=== PATIENT | female | born 1985 | race Hispanic/Latino ===

== ENCOUNTER 2017-07-30 14:21 | Emergency (ER) | payer SELFPAY ==
[2017-07-30 16:09] LABS: BASOPHILS % (AUTO) 0.5 % (0.0-5.0); EOSINOPHILS % (AUTO) 1.6 % (0.0-8.0); HEMATOCRIT 38.9 % (36-48); MEAN CORPUSCULAR HEMOGLOBIN 33.1 pg (27.0-33.0); MEAN CORPUSCULAR HGB CONC 35.7 g/dL (32.0-36.0); MEAN CORPUSCULAR VOLUME 92.8 fL (79-99); NEUTROPHILS % (AUTO) 74.9 % (40.0-77.0); PLATELET COUNT (AUTO) 197 K/uL (130-400); RED BLOOD CELL COUNT(AUTO) 4.19 MIL/uL (4.00-5.50); RED CELL DISTRIBUTION WIDTH 12.8 % (11.0-15.5); WHITE BLOOD COUNT (AUTO) 6.8 K/uL (4.8-10.8)
[2017-07-30 16:20] LABS: CREATININE 0.8 mg/dL (0.5-1.5); POTASSIUM 3.8 mmol/L (3.5-5.1)
[2017-07-30 17:05] LABS: BILIRUBIN,URINE Small (NEGATIVE); COLOR,URINE Dark Yellow (YELLOW); GLUCOSE, URINE (UA) Negative (NEGATIVE); KETONES,URINE Trace mg/dL (NEGATIVE); LEUKOCYTE ESTERASE ,URINE Negative (NEGATIVE); NITRATE,URINE Negative (NEGATIVE); OCCULT BLOOD,URINE Negative (NEGATIVE); PROTEIN,URINE Negative (NEGATIVE)
[2017-07-30 17:12] LABS: APPEARANCE,URINE SLIGHTLY CLOUDY (CLEAR)
[2017-07-30 17:13] LABS: HCG,QUAL RESULT NEGATIVE (NEGATIVE)
[2017-07-30 17:22] LABS: BACTERIA,URINE Rare /HPF (None Seen); CALCIUM OXALATE CRYSTALS,UR Rare /LPF (None Seen); MUCUS,URINE Few LPF (None Seen); RBC,URINE 0-1 /HPF (0-1); SQUAMOUS EPITHELIAL CELL,UR Few /HPF (0-2); WBC,URINE 0-1 /HPF (0-1)
== END 2017-07-30 17:50 | disposition home or self-care (01) ==
LOC: EDH 14:21
DX: R10.84 Generalized abdominal pain (principal); R19.7 Diarrhea, unspecified
CPT/HCPCS: 36415; 80048; 81001; 81025; 85025

== ENCOUNTER 2018-03-27 13:46 | Inpatient (IN) | payer OTHER ==
[2018-03-26] MEDS: LACTATED RINGERS 1000ML 1,000 ML IV SCH (20:20)
[~2018-03-27] VITALS: Ht 154.9 cm; Wt 56.5 kg
[2018-03-27 14:14] LABS: APPEARANCE,URINE SL CLOUDY (CLEAR); BILIRUBIN,URINE NEGATIVE (NEGATIVE); COLOR,URINE YELLOW (YELLOW); GLUCOSE, URINE (UA) NEGATIVE (NEGATIVE); KETONES,URINE NEGATIVE (NEGATIVE); LEUKOCYTE ESTERASE ,URINE NEGATIVE (NEGATIVE); NITRATE,URINE NEGATIVE (NEGATIVE); OCCULT BLOOD,URINE NEGATIVE (NEGATIVE); PROTEIN,URINE TRACE (NEGATIVE); UROBILINOGEN,URINE 0.2 mg/dL (0.2-1.0)
[2018-03-27] MEDS ORDERED: ONDANSETRON HCL 4 MG/2 ML VIAL ONE (14:22)
[2018-03-27] MEDS ORDERED: SODIUM CHLORIDE 0.9% 1000ML 1,000 ML IV ONE (14:22)
[2018-03-27 14:23] LABS: HCG,QUAL RESULT NEGATIVE (NEGATIVE)
[2018-03-27 14:28] LABS: BASOPHILS % (AUTO) 0.3 % (0.0-5.0); HEMATOCRIT 43.9 % (36-48); LYMPHOCYTES % (AUTO) 5.8 % (21.0-51.0); MEAN CORPUSCULAR HEMOGLOBIN 32.6 pg (27.0-33.0); MEAN CORPUSCULAR HGB CONC 34.4 g/dL (32.0-36.0); MEAN CORPUSCULAR VOLUME 94.8 fL (79-99); MONOCYTES % (AUTO) 3.6 % (3.0-13.0); NEUTROPHILS % (AUTO) 90.3 % (40.0-77.0); PLATELET COUNT (AUTO) 248 K/uL (130-400); RED BLOOD CELL COUNT(AUTO) 4.63 MIL/uL (4.00-5.50); RED CELL DISTRIBUTION WIDTH 13.3 % (11.0-15.5); WHITE BLOOD COUNT (AUTO) 17.1 K/uL (4.8-10.8)
[2018-03-27 14:31] LABS: RBC,URINE 0-1 /HPF (0-1)
[2018-03-27 14:32] LABS: BACTERIA,URINE Few /HPF (None Seen)
[2018-03-27 14:33] LABS: MUCUS,URINE Few LPF (None Seen); SQUAMOUS EPITHELIAL CELL,UR Moderate /HPF (0-2)
[2018-03-27 14:39] LABS: CREATININE 0.9 mg/dL (0.5-1.5); POTASSIUM 3.9 mmol/L (3.5-5.1)
[2018-03-27 14:43] LABS: ALBUMIN 4.3 g/dL (3.5-5.0); BILIRUBIN,DIRECT 0.2 mg/dL (0.0-0.3); BILIRUBIN,TOTAL 0.8 mg/dL (0.2-1.0); TOTAL PROTEIN, SERUM 8.1 g/dL (6.0-8.3)
[2018-03-27] MEDS ORDERED: MORPHINE SULFATE 4 MG/1ML SYG ONE (14:59)
[2018-03-27] MEDS ORDERED: IOHEXOL-350 75 ML VIAL IV ONE (15:14)
[2018-03-27] MEDS ORDERED: FAMOTIDINE/PF 20 MG/2 ML VIAL IV ONE (15:49)
[2018-03-27] MEDS ORDERED: KETOROLAC TROMETHAMINE 30MG/ML ONE (16:25)
[2018-03-27] MEDS ORDERED: SODIUM CHLORIDE 0.9% 1000ML 1,000 ML IV SCH (16:56)
[2018-03-27] MEDS ORDERED: HYDRALAZINE HCL 20 MG/ML VIAL IV PRN (17:00)
[2018-03-27] MEDS ORDERED: ACETAMINOPHEN 325 MG TAB PO PRN ×2 (17:00)
[2018-03-27 17:08] LABS: AMPHET/METH SCREEN,URINE NEGATIVE (NEGATIVE); BARBITURATE SCREEN, URINE NEGATIVE (NEGATIVE); BENZODIAZEPINES SCREEN,URINE NEGATIVE (NEGATIVE); CANNABINOID SCREEN,URINE NEGATIVE (NEGATIVE); COCAINE SCREEN,URINE NEGATIVE (NEGATIVE); OPIATE SCREEN,URINE NEGATIVE (NEGATIVE); PHENCYCLIDINE SCREEN,URINE NEGATIVE (NEGATIVE)
[2018-03-27 17:21] LABS: HEMOGLOBIN A1C 4.9 % (4.0-6.0)
[2018-03-27 17:23] LABS: PHOSPHORUS 4.5 mg/dL (2.5-4.9)
[2018-03-27 17:28] LABS: CRP QUANTITATIVE < 0.20 mg/L (0.00-9.0)
[2018-03-27] MEDS ORDERED: MAGNESIUM 2GM PREMIX 50ML 50 ML IV PRN (19:15)
[2018-03-27] MEDS ORDERED: LEVOFLOXACIN 500 MG/D5W 100 ML 100 ML ONE (19:38)
[2018-03-27] MEDS ORDERED: LACTATED RINGERS 1000ML 1,000 ML IV ONE (19:38)
[2018-03-27 20:20] VITALS: BP 144/94
[2018-03-27] MEDS: LEVOFLOXACIN 500 MG/D5W 100 ML 100 ML IV SCH (20:20)
[2018-03-27] MEDS: ONDANSETRON HCL 4 MG/2 ML VIAL IV PRN (20:54)
[2018-03-27] MEDS: MORPHINE SULFATE 4 MG/1ML SYG IV PRN (20:56)
[2018-03-27] MEDS: FAMOTIDINE/PF 20 MG/2 ML VIAL IV SCH (21:00)
[2018-03-27 23:30] VITALS: BP 137/93
[2018-03-28] MEDS ORDERED: KETOROLAC TROMETHAMINE 15MG/ML ONE (00:03)
[2018-03-28 03:00] VITALS: BP 146/91
[2018-03-28] MEDS: MORPHINE SULFATE 4 MG/1ML SYG IV PRN (04:48)
[2018-03-28] MEDS: ONDANSETRON HCL 4 MG/2 ML VIAL IV PRN (04:48)
[2018-03-28] MEDS: LACTATED RINGERS 1000ML 1,000 ML IV SCH ×2 (04:48→19:27)
[2018-03-28 05:25] LABS: BASOPHILS % (AUTO) 0.1 % (0.0-5.0); EOSINOPHILS % (AUTO) 0.1 % (0.0-8.0); HEMATOCRIT 38.5 % (36-48); LYMPHOCYTES % (AUTO) 7.7 % (21.0-51.0); MEAN CORPUSCULAR HEMOGLOBIN 32.4 pg (27.0-33.0); MEAN CORPUSCULAR HGB CONC 34.7 g/dL (32.0-36.0); MEAN CORPUSCULAR VOLUME 93.5 fL (79-99); MONOCYTES % (AUTO) 5.1 % (3.0-13.0); PLATELET COUNT (AUTO) 160 K/uL (130-400); RED BLOOD CELL COUNT(AUTO) 4.12 MIL/uL (4.00-5.50); RED CELL DISTRIBUTION WIDTH 13.2 % (11.0-15.5); WHITE BLOOD COUNT (AUTO) 9.2 K/uL (4.8-10.8)
[2018-03-28 05:30] LABS: CREATININE 0.6 mg/dL (0.5-1.5); POTASSIUM 3.5 mmol/L (3.5-5.1)
[2018-03-28 08:00] VITALS: BP 141/95
[2018-03-28] MEDS: FAMOTIDINE/PF 20 MG/2 ML VIAL IV SCH ×2 (10:01→20:46)
[2018-03-28] MEDS: ENOXAPARIN SODIUM 40 MG/0.4 ML SYRINGE SQ SCH (10:03)
[2018-03-28] MEDS: MORPHINE SULFATE 2 MG/ML 1ML SYG IV PRN ×2 (10:06→20:50)
[2018-03-28 12:00] VITALS: BP 134/92
[2018-03-28 16:00] VITALS: BP 137/93
[2018-03-28 19:00] VITALS: BP 138/88
[2018-03-28] MEDS: LEVOFLOXACIN 500 MG/D5W 100 ML 100 ML IV SCH (19:27)
[2018-03-28] MEDS: METOPROLOL TARTRATE 25 MG TAB PO SCH (21:52)
[2018-03-28 23:00] VITALS: BP 129/76
[2018-03-29] MEDS: LACTATED RINGERS 1000ML 1,000 ML IV SCH ×2 (01:00→09:05)
[2018-03-29] MEDS: KETOROLAC TROMETHAMINE 15MG/ML IV PRN (01:05)
[2018-03-29 03:00] VITALS: BP 107/64
[2018-03-29 05:50] LABS: HEMATOCRIT 36.1 % (36-48); MEAN CORPUSCULAR HEMOGLOBIN 33.5 pg (27.0-33.0); MEAN CORPUSCULAR HGB CONC 35.4 g/dL (32.0-36.0); MEAN CORPUSCULAR VOLUME 94.6 fL (79-99); NUCLEATED RED BLOOD CELLS 0.1 % (0.0-0.19); PLATELET COUNT (AUTO) 155 K/uL (130-400); RED BLOOD CELL COUNT(AUTO) 3.81 MIL/uL (4.00-5.50); RED CELL DISTRIBUTION WIDTH 12.7 % (11.0-15.5); WHITE BLOOD COUNT (AUTO) 8.9 K/uL (4.8-10.8)
[2018-03-29] MEDS: MORPHINE SULFATE 2 MG/ML 1ML SYG IV PRN ×2 (05:58→20:34)
[2018-03-29 06:13] LABS: CREATININE 0.7 mg/dL (0.5-1.5); MAGNESIUM 1.4 mg/dL (1.80-2.40); POTASSIUM 3.3 mmol/L (3.5-5.1)
[2018-03-29] MEDS ORDERED: POTASSIUM CHLORIDE 10% ELIXIR 20 MEQ/15 ML UDCUP PO SCH ×2 (06:50→11:00)
[2018-03-29] MEDS ORDERED: POTASSIUM CHLORIDE 10% ELIXIR 20 MEQ/15 ML UDCUP ONE (07:01)
[2018-03-29 07:30] VITALS: BP 120/76
[2018-03-29] MEDS: FAMOTIDINE/PF 20 MG/2 ML VIAL IV SCH ×2 (08:53→20:29)
[2018-03-29] MEDS: METOPROLOL TARTRATE 25 MG TAB PO SCH ×2 (08:54→20:30)
[2018-03-29] MEDS: ENOXAPARIN SODIUM 40 MG/0.4 ML SYRINGE SQ SCH (08:55)
[2018-03-29 11:00] VITALS: BP 117/71
[2018-03-29] MEDS: MORPHINE SULFATE 4 MG/1ML SYG IV PRN ×2 (11:13→15:26)
[2018-03-29 16:00] VITALS: BP 117/72
[2018-03-29] MEDS ORDERED: MAGNESIUM 4GM PREMIX 100ML 100 ML IV SCH (16:15)
[2018-03-29] MEDS ORDERED: POTASSIUM CHLORIDE 20MEQ/100ML 100 ML IV PRN (16:15)
[2018-03-29] MEDS ORDERED: LIDOCAINE HCL-MPF 1% 2ML VIAL IVP PRN (16:15)
[2018-03-29] MEDS ORDERED: MORPHINE SULFATE 4 MG/1ML SYG IV PRN (17:00)
[2018-03-29] MEDS: SODIUM CHLORIDE 0.9% 1000ML 1,000 ML IV SCH ×2 (18:41→23:56)
[2018-03-29 19:19] VITALS: BP 122/77
[2018-03-29] MEDS: LEVOFLOXACIN 500 MG/D5W 100 ML 100 ML IV SCH (20:29)
[2018-03-29 23:07] VITALS: BP 130/82
[2018-03-30] MEDS: MORPHINE SULFATE 2 MG/ML 1ML SYG IV PRN ×4 (03:02→22:54)
[2018-03-30 04:00] VITALS: BP 119/73
[2018-03-30] MEDS: SODIUM CHLORIDE 0.9% 1000ML 1,000 ML IV SCH ×3 (05:32→20:41)
[2018-03-30 05:33] LABS: HEMATOCRIT 34.2 % (36-48); MEAN CORPUSCULAR HEMOGLOBIN 32.9 pg (27.0-33.0); MEAN CORPUSCULAR HGB CONC 34.9 g/dL (32.0-36.0); MEAN CORPUSCULAR VOLUME 94.5 fL (79-99); PLATELET COUNT (AUTO) 152 K/uL (130-400); RED BLOOD CELL COUNT(AUTO) 3.62 MIL/uL (4.00-5.50); RED CELL DISTRIBUTION WIDTH 12.9 % (11.0-15.5); WHITE BLOOD COUNT (AUTO) 10.4 K/uL (4.8-10.8)
[2018-03-30 05:54] LABS: ALBUMIN 2.4 g/dL (3.5-5.0); BILIRUBIN,TOTAL 1.2 mg/dL (0.2-1.0); CREATININE 0.5 mg/dL (0.5-1.5); MAGNESIUM 2.1 mg/dL (1.80-2.40); PHOSPHORUS 1.8 mg/dL (2.5-4.9); POTASSIUM 3.9 mmol/L (3.5-5.1); TOTAL PROTEIN, SERUM 6.2 g/dL (6.0-8.3)
[2018-03-30] MEDS: METOPROLOL TARTRATE 25 MG TAB PO SCH ×2 (09:02→20:41)
[2018-03-30] MEDS: FAMOTIDINE/PF 20 MG/2 ML VIAL IV SCH ×2 (09:02→20:41)
[2018-03-30] MEDS: ENOXAPARIN SODIUM 40 MG/0.4 ML SYRINGE SQ SCH (09:03)
[2018-03-30 09:29] VITALS: BP 120/78
[2018-03-30 12:03] VITALS: BP 128/78
[2018-03-30 16:49] VITALS: BP 128/85
[2018-03-30] MEDS: LEVOFLOXACIN 500 MG/D5W 100 ML 100 ML IV SCH (20:41)
[2018-03-30 20:42] VITALS: BP 124/73
[2018-03-30 23:27] VITALS: BP 123/86
[2018-03-31] MEDS: SODIUM CHLORIDE 0.9% 1000ML 1,000 ML IV SCH ×2 (01:32→05:01)
[2018-03-31] MEDS: MORPHINE SULFATE 2 MG/ML 1ML SYG IV PRN (03:53)
[2018-03-31 04:00] VITALS: BP 121/77
[2018-03-31 05:30] LABS: HEMATOCRIT 32.2 % (36-48); MEAN CORPUSCULAR HEMOGLOBIN 33.6 pg (27.0-33.0); MEAN CORPUSCULAR HGB CONC 35.6 g/dL (32.0-36.0); MEAN CORPUSCULAR VOLUME 94.3 fL (79-99); PLATELET COUNT (AUTO) 195 K/uL (130-400); RED BLOOD CELL COUNT(AUTO) 3.42 MIL/uL (4.00-5.50); RED CELL DISTRIBUTION WIDTH 12.8 % (11.0-15.5); WHITE BLOOD COUNT (AUTO) 9.1 K/uL (4.8-10.8)
[2018-03-31 07:17] LABS: POTASSIUM 3.7 mmol/L (3.5-5.1)
[2018-03-31 07:51] LABS: CREATININE 0.6 mg/dL (0.5-1.5)
[2018-03-31 08:00] VITALS: BP 126/83
[2018-03-31] MEDS: ENOXAPARIN SODIUM 40 MG/0.4 ML SYRINGE SQ SCH (09:00)
[2018-03-31] MEDS: METOPROLOL TARTRATE 25 MG TAB PO SCH (09:58)
[2018-03-31] MEDS: FAMOTIDINE/PF 20 MG/2 ML VIAL IV SCH (09:58)
[2018-03-31] MEDS: KETOROLAC TROMETHAMINE 15MG/ML IV PRN (10:03)
[2018-03-31 12:00] VITALS: BP 112/75
[2018-03-31] MEDS ORDERED: LEVO500T89 PO (14:37)
[2018-03-31 16:00] VITALS: BP 121/77
== END 2018-03-31 18:38 | disposition home or self-care (01) | DRG 444 ==
LOC: EDH 13:46 → EDHIP 13:47 → OBSVTOIN 13:47 → 3BH 20:13
PROVIDERS: ADMIT Internal Medicine; ATTEND Internal Medicine
DX: K80.00 Calculus of gallbladder with acute cholecystitis without obstruction (principal); K85.90 Acute pancreatitis without necrosis or infection, unspecified; N39.0 Urinary tract infection, site not specified; E86.1 Hypovolemia
CPT/HCPCS: 36415; 74176; 76705; 78226; 80048; 80053; 80061; 80076; 80305; 80339; 81001; 81025; 82150; 83036; 83690; 83735; 84100; 85025; 85027; 86140; A9537; J1650; J1885; J1956; J2270; J2405; J3475; J3490; J7030; J7120; Q9967